=== PATIENT | male | born 1980 | race Caucasian/White ===

== ENCOUNTER → 2021-11-15 | Day surgery (SDC) | payer OTHER ==
[~2021-11-15] VITALS: Ht 180.3 cm; Wt 88.0 kg
[~2021-11-15] MED LIST: HYDROCODONE-AC1 EACH PO; IBU800 MG PO
[2021-11-15 09:56] LABS: HEMOGLOBIN 15.5 gm/dl (14.0-17.5); RED BLOOD COUNT 5.04 M/UL (4.20-5.50); WHITE BLOOD COUNT 12.3 K/UL (4.5-11.0)
[2021-11-15 10:24] LABS: BUN/CREATININE RATIO 16 (0-10)
== END | disposition home or self-care (01) ==
LOC: OR 08:04
PROVIDERS: Orthopaedic Surgery
DX: S42.022A Displaced fracture of shaft of left clavicle, initial encounter for closed fracture (principal); V89.9XXA Person injured in unspecified vehicle accident, initial encounter; Z85.828 Personal history of other malignant neoplasm of skin
CPT/HCPCS: 36415; 73000; 76000; 80048; 85027; C1713; J0690; J1100; J1170; J1885; J2001; J2250; J2405; J2704; J2795; J3010